=== PATIENT | female | born 1985 | race American Indian/Alaskan Native ===

== ENCOUNTER 2021-01-03 13:02 | Emergency (ER) | payer MEDICAID, OTHER ==
[2021-01-03 14:35] VITALS: BP 109/75
--- NOTE | 2021-01-03 15:10 | XRay Report ---
XR chest routine 2V INDICATION / CLINICAL INFORMATION: cough. COMPARISON: None available. FINDINGS: SUPPORT DEVICES: None. HEART /PULMONARY VASCULATURE: No significant abnormality. LUNGS / PLEURA: No significant pulmonary or pleural abnormality. No pneumothorax. ADDITIONAL FINDINGS: No significant additional findings. IMPRESSION: 1. No acute findings. Signer Name: Bryant Ward MD Signed: 01/03/2021 3:06 PM Workstation Name: [id number]
--- NOTE | 2021-01-03 17:09 | Emergency Department Report ---
- General Chief Complaint: Dyspnea/Respdistress Stated Complaint: COUGH, WEAKNESS FEVER Time Seen by Provider: 01/03/21 17:04 Source: patient Mode of arrival: Ambulatory Limitations: No Limitations - History of Present Illness Initial Comments: Patient is a 35-year-old female presents emergency room with complaints of URI symptoms that began a week ago. Patient states that she traveled to [place] last week. She states that her son and her became sick with URI symptoms but she states that their illness only lasted for approximately 2 days. She states that she has been vaccinated for COVID-19. She states that her symptoms are fever, cough with mucus production, nausea, diarrhea. She states occasionally she feels shortness of breath and wheezing after a frequent cough. She denies any shortness of breath currently. She denies any chest pain or abdominal pain. Past medical history of breast cancer in remission. Allergy to Tylenol, ibuprofen, penicillin. - Related Data Previous Rx's Medication Instructions Recorded Last Taken Type Famotidine [Pepcid] 20 mg PO DAILY #30 tablet 11/25/14 Unknown Rx Ondansetron [Zofran Odt] 8 mg PO TID PRN #20 tab.rapdis 11/25/14 Unknown Rx Tramadol HCl [traMADol] 50 - 100 mg PO TID PRN #30 tablet 11/25/14 Unknown Rx Dicyclomine [Bentyl] 10 mg PO QID PRN #20 capsule 08/17/15 Unknown Rx Ondansetron [Zofran Odt] 4 mg PO QID PRN #20 tab.rapdis 08/17/15 Unknown Rx Albuterol Sulfate [Proventil Hfa] 1 - 2 puff IH TID PRN #1 hfa.aer.ad 01/03/21 Unknown Rx Azithromycin [Zithromax TAB] 250 mg PO QDAY 5 Days #6 tablet 01/03/21 Unknown Rx Benzonatate [Tessalon Perles] 100 mg PO Q8HR PRN #12 capsule 01/03/21 Unknown Rx Prednisone [predniSONE 10 mg 10 mg PO .TAPER #1 tab.ds.pk 01/03/21 Unknown Rx (6-Day Pack, 21 Tabs)] Promethazine [Phenergan] 25 mg PO Q8HR PRN #12 tab 01/03/21 Unknown Rx Allergies Allergy/AdvReac Type Severity Reaction Status Date / Time acetaminophen [From Tylenol] Allergy Unknown Verified 08/16/15 17:22 ibuprofen [From Advil] Allergy Swelling Verified 08/16/15 17:22 Penicillins AdvReac Anaphylaxis Verified 08/16/15 17:22 ED Review of Systems ROS: Stated complaint: COUGH, WEAKNESS FEVER Other details as noted in HPI Comment: All other systems reviewed and negative ED Past Medical Hx - Past Medical History Previous Medical History?: No Additional medical history: BREAST CANCER YEARS AGO - Surgical History Past Surgical History?: Yes Additional Surgical History: Lumpectomy. C SECTION - Social History Smoking Status: Former Smoker Substance Use Type: None - Medications Home Medications: Home Medications Medication Instructions Recorded Confirmed Last Taken Type Famotidine [Pepcid] 20 mg PO DAILY #30 tablet 11/25/14 Unknown Rx Ondansetron [Zofran Odt] 8 mg PO TID PRN #20 tab.rapdis 11/25/14 Unknown Rx Tramadol HCl [traMADol] 50 - 100 mg PO TID PRN #30 tablet 11/25/14 Unknown Rx Dicyclomine [Bentyl] 10 mg PO QID PRN #20 capsule 08/17/15 Unknown Rx Ondansetron [Zofran Odt] 4 mg PO QID PRN #20 tab.rapdis 08/17/15 Unknown Rx Albuterol Sulfate [Proventil Hfa] 1 - 2 puff IH TID PRN #1 hfa.aer.ad 01/03/21 Unknown Rx Azithromycin [Zithromax TAB] 250 mg PO QDAY 5 Days #6 tablet 01/03/21 Unknown Rx Benzonatate [Tessalon Perles] 100 mg PO Q8HR PRN #12 capsule 01/03/21 Unknown Rx Prednisone [predniSONE 10 mg 10 mg PO .TAPER #1 tab.ds.pk 01/03/21 Unknown Rx (6-Day Pack, 21 Tabs)] Promethazine [Phenergan] 25 mg PO Q8HR PRN #12 tab 01/03/21 Unknown Rx ED Physical Exam - General Limitations: No Limitations General appearance: alert, in no apparent distress - Head Head exam: Present: atraumatic, normocephalic - Eye Eye exam: Present: normal appearance - ENT ENT exam: Present: mucous membranes moist - Respiratory Respiratory exam: Present: normal lung sounds bilaterally. Absent: respiratory distress, wheezes, rales, rhonchi, stridor, chest wall tenderness, accessory muscle use, decreased breath sounds, prolonged expiratory - Cardiovascular Cardiovascular Exam: Present: regular rate, normal rhythm, normal heart sounds. Absent: systolic murmur, diastolic murmur, rubs, gallop - Neurological Exam Neurological exam: Present: alert, oriented X3 - Psychiatric Psychiatric exam: Present: normal affect, normal mood - Skin Skin exam: Present: warm, dry, intact ED Course Vital Signs 01/03/21 14:34 Temperature 98.1 F Pulse Rate 67 Respiratory 18 Rate Blood Pressure 109/75 O2 Sat by Pulse 100 Oximetry ED Medical Decision Making - Radiology Data Radiology results: report reviewed Ordering Physician: CLAUDIA GRULLON Date of Service: 01/03/21 Procedure(s): XR chest routine 2V Accession Number(s): [id number] cc: CLAUDIA GRULLON Fluoro Time In Minutes: XR chest routine 2V INDICATION / CLINICAL INFORMATION: cough. COMPARISON: None available. FINDINGS: SUPPORT DEVICES: None. HEART /PULMONARY VASCULATURE: No significant abnormality. LUNGS / PLEURA: No significant pulmonary or pleural abnormality. No pneumothorax. ADDITIONAL FINDINGS: No significant additional findings. IMPRESSION: 1. No acute findings. Signer Name: Jolanta Mendoza MD Signed: 01/03/2021 3:06 PM Workstation Name: [id number] Transcribed By: KATIE Dictated By: JOLANTA MENDOZA MD Electronically Authenticated By: JOLANTA MENDOZA MD Signed Date/Time: 01/03/21 1506 DD/ 1506 TD/TT: - Medical Decision Making Patient is a 35-year-old female presents emergency room with complaints of URI symptoms that began a week ago. Patient states that she traveled to [place] last week. She states that her son and her became sick with URI symptoms but she states that their illness only lasted for approximately 2 days. She states that she has been vaccinated for COVID-19. She states that her symptoms are fever, cough with mucus production, nausea, diarrhea. She states occasionally she feels shortness of breath and wheezing after a frequent cough. She denies any shortness of breath currently. She denies any chest pain or abdominal pain. Past medical history of breast cancer in remission. Allergy to Tylenol, ibuprofen, penicillin. Vitals are normal. Presents are clear bilaterally, no wheezing, no rales, no rhonchi. Chest x-ray 1. No acute findin gs. Symptoms and examination appear most consistent with bronchitis. Patient given prescription for medications. Advised patient Please take medication as prescribed. Increase your fluid intake. Follow-up with your primary care doctor for reexamination. Return to emergency room for new or worsening symptoms. Critical care attestation.: If time is entered above; I have spent that time in minutes in the direct care of this critically ill patient, excluding procedure time. ED Disposition Clinical Impression: Acute bronchitis Qualifiers: Bronchitis organism: unspecified organism Qualified Code(s): J20.9 - Acute bronchitis, unspecified Disposition: TO HOME OR SELFCARE Is pt being admited?: No Does the pt Need Aspirin: No Condition: Stable Instructions: Acute Bronchitis, Adult, Acute Bronchitis (ED) Additional Instructions: Please take medication as prescribed. Increase your fluid intake. Follow-up with your primary care doctor for reexamination. Return to emergency room for new or worsening symptoms. Prescriptions: Promethazine [Phenergan] 25 mg PO Q8HR PRN #12 tab PRN Reason: nausea/vomiting Prednisone [predniSONE 10 mg (6-Day Pack, 21 Tabs)] 10 mg PO .TAPER #1 tab.ds.pk Albuterol Sulfate [Proventil Hfa] 1 - 2 puff IH TID PRN #1 hfa.aer.ad PRN Reason: wheezing/shortness of breath Benzonatate [Tessalon Perles] 100 mg PO Q8HR PRN #12 capsule PRN Reason: cough Azithromycin [Zithromax TAB] 250 mg PO QDAY 5 Days #6 tablet Referrals: VIKI LACEY MD [Staff Physician] - 3-5 Days [facility] [Provider Group] - 3-5 Days Forms: Work/School Release Form(ED) Time of Disposition: 17:07 Print Language: SAO TOMEAN
== END 2021-01-03 17:27 | disposition home or self-care (01) ==
LOC: ED 13:02
DX: J20.9 Acute bronchitis, unspecified (principal); Z98.890 Other specified postprocedural states; Z87.891 Personal history of nicotine dependence; Z79.899 Other long term (current) drug therapy; Z88.0 Allergy status to penicillin; Z88.8 Allergy status to other drugs, medicaments and biological substances
CPT/HCPCS: 71046